=== PATIENT | female | born 1940 | race Caucasian/White ===

== ENCOUNTER → 2018-06-30 | Outpatient (CLI) | payer OTHER | LOC: M.RAD 06-17 15:42 | DX: Z12.31 Encounter for screening mammogram for malignant neoplasm of breast (principal); Z13.820 Encounter for screening for osteoporosis; E28.39 Other primary ovarian failure; Z78.0 Asymptomatic menopausal state ==

== ENCOUNTER 2019-09-04 16:17 | Emergency (ER) | payer OTHER ==
[~2019-09-04] VITALS: Ht 154.9 cm; Wt 85.7 kg
[2019-09-04] MEDS ORDERED: AUGMENTIN 875-1 EACH PO (16:39)
[2019-09-04] MEDS ORDERED: NORCO 5-325 TA1 EAC1 PO (16:39)
[2019-09-04] MEDS ORDERED: CENTANY30 GM TOP (16:40)
[2019-09-04 18:45] VITALS: BP 150/73
== END 2019-09-04 18:45 | disposition home or self-care (01) ==
LOC: M.ERS 16:17
DX: S61.213A Laceration without foreign body of left middle finger without damage to nail, initial encounter (principal); S61.412A Laceration without foreign body of left hand, initial encounter; Z90.49 Acquired absence of other specified parts of digestive tract; W54.0XXA Bitten by dog, initial encounter; Y93.89 Activity, other specified; Y92.89 Other specified places as the place of occurrence of the external cause; Y99.8 Other external cause status

== ENCOUNTER → 2019-09-25 | Outpatient (CLI) | payer OTHER ==
[~2019-09-25] MED LIST: AUGMENTIN 875-1 EACH PO; CENTANY30 GM TOP; NORCO 5-325 TA1 EAC1 PO
== END ==
LOC: M.RAD 11:38
PROVIDERS: ATTEND Nurse Practitioner Family
DX: Z12.31 Encounter for screening mammogram for malignant neoplasm of breast (principal)

== ENCOUNTER 2021-03-30 11:11 | Inpatient (IN) | payer OTHER ==
[~2021-03-30] VITALS: Ht 154.9 cm; Wt 82.6 kg
[2021-03-30 11:21] VITALS: BP 154/76
[2021-03-30 11:49] LABS: ABSOLUTE LYMPHOCYTES 0.7 thou/uL (0.8-5.3); ABSOLUTE MONOCYTES 0.4 thou/uL (0.0-1.2); ABSOLUTE NEUTROPHILS 7.1 thou/uL (1.6-8.1); BASOPHILS 0.2 %; EOSINOPHILS 0.4 %; HEMATOCRIT 37.3 % (37.0-47.0); HEMOGLOBIN 12.9 gm/dL (12.0-15.0); LYMPHOCYTES 8.8 %; MCH 32.7 pg (26.0-34.0); MCHC 34.6 g/dL (28.0-37.0); MCV 94.4 fL (80.0-100.0); MONOCYTES 4.8 %; MPV 7.2 fl. (7.2-11.1); NUCLEATED RBCS 0 /100WBC; PLATELET COUNT* 273 thou/uL (150-400); POLYS 85.8 %; RBC 3.95 mil/uL (4.20-5.00); RDW-CV 13.1 % (10.5-14.5); WBC 8.2 thou/uL (4.0-11.0)
[2021-03-30 11:50] LABS: INFLUENZA A ANTIGEN Negative (Negative); INFLUENZA B ANTIGEN Negative (Negative)
[2021-03-30 11:58] LABS: CALCIUM 8.1 mg/dL (8.5-10.1); CREATININE 0.8 mg/dL (0.6-1.3); POTASSIUM 3.7 mmol/L (3.5-5.1)
[2021-03-30 12:08] LABS: ALBUMIN 2.4 g/dL (3.4-5.0); TOTAL BILIRUBIN 0.3 mg/dL (<0.1-1.0); TOTAL PROTEIN 6.3 g/dL (6.4-8.2)
[2021-03-30 13:35] LABS: URINE BILIRUBIN NEGATIVE (Negative); URINE BLOOD TRACE (Negative); URINE CLARITY CLEAR; URINE COLOR YELLOW; URINE GLUCOSE-RANDOM NEGATIVE (Negative); URINE KETONES NEGATIVE (Negative); URINE LEUKOCYTES-REFLEX NEGATIVE (Negative); URINE NITRITE-REFLEX NEGATIVE (Negative); URINE PROTEIN TRACE (Negative); URINE SPECIFIC GRAVITY 1.015 (1.005-1.030); URINE UROBILINOGEN 0.2 E.U./dl (0.2-1.0)
[2021-03-30 16:56] VITALS: BP 173/82
[2021-03-30 21:18] VITALS: BP 188/72
[2021-03-31] VITALS (7 sets, daily range): BP systolic 115–188; BP diastolic 65–86
[2021-03-31 05:18] LABS: ABSOLUTE LYMPHOCYTES 0.6 thou/uL (0.8-5.3); ABSOLUTE MONOCYTES 0.3 thou/uL (0.0-1.2); ABSOLUTE NEUTROPHILS 5.3 thou/uL (1.6-8.1); BASOPHILS 0.2 %; HEMATOCRIT 36.1 % (37.0-47.0); HEMOGLOBIN 12.2 gm/dL (12.0-15.0); LYMPHOCYTES 9.5 %; MCH 32.5 pg (26.0-34.0); MCHC 33.8 g/dL (28.0-37.0); MCV 96.3 fL (80.0-100.0); MONOCYTES 5.3 %; MPV 7.2 fl. (7.2-11.1); NUCLEATED RBCS 0 /100WBC; PLATELET COUNT* 266 thou/uL (150-400); RBC 3.75 mil/uL (4.20-5.00); RDW-CV 13.4 % (10.5-14.5); WBC 6.3 thou/uL (4.0-11.0)
[2021-03-31 05:22] LABS: CALCIUM 8.1 mg/dL (8.5-10.1); CREATININE 0.6 mg/dL (0.6-1.3); POTASSIUM 4.1 mmol/L (3.5-5.1)
--- NOTE | 2021-03-31 15:27 | EKG ---
[place] [address] ELECTROCARDIOGRAM REPORT Name: SERINA GARCIA Room: [address] IN .R.#: [id number] Admission: 03/30/21 Attend Phys: Rayray Morton, Discharge: Date of : 40 Date of Service: 03/30/21 1118 Report #: [id number] THIS REPORT FOR: //name// [facility] ED Test Date: 2021-03-30 Test Time: 11:18:29 Pat Name: SERINA GARCIA Department: Room: [facility] Gender: F Fire Safety Inspector: : 1940 Requested By: Kiana Castro Order Number: [id number] MD: Leroy Sanchez Measurements Intervals [place] Rate: 104 P: 85 VA: 178 QRS: -31 QRSD: 131 T: 113 QT: 356 QTc: 469 Interpretive Statements Sinus tachycardia Left bundle branch block No previous ECG available for comparison Electronically Signed On 03-31-2021 15:27:21 QUILTER FIXER by Leroy Sanchez [email or web address] <ELECTRONICALLY SIGNED> By: Leroy Sanchez MD, [facility] 03/31/21 1527 1118 1118 Leroy Sanchez MD, [facility] /EPI
[2021-04-01] VITALS: BP 158/71
[2021-04-01 04:11] VITALS: BP 156/67
[2021-04-01 11:30] VITALS: BP 85/56
--- NOTE | 2021-04-01 14:24 | 2DMMODE ---
[place] [address] 2 D/M-MODE ECHOCARDIOGRAM Name: SERINA GARCIA Room: [address] IN [facility]#: [id number] Admission: 03/30/21 Attend Phys: Rayray Morton, Discharge: Date of : 40 Date of Service: 04/01/21 1424 Report #: [id number] THIS REPORT FOR: cc: Arthur Catherine MD, Bruce D. MD Liston, Michael J. MD [facility] ~ APPROVED REPORT Study performed: 04/01/2021 10:29:58 EXAM: Comprehensive 2D, Doppler, and color-flow Echocardiogram Patient Location: In-Patient Room #: [facility] Status: routine BSA: 1.81 HR: 114 bpm Rhythm: NSR Other Information Study Quality: Good Indications Pulmonary Embolism 2D Dimensions IVSd: 12.96 (7-11mm) LVOT Diam: 19.62 (18-24mm) LVDd: 42.48 mm PWd: 10.63 (7-11mm) Ascending Ao: 31.58 (22-36mm) LVDs: 21.74 (25-40mm) Aortic Root: 27.85 mm Volumes Left Atrial Volume (Systole) LA ESV Index: 32.40 mL/m2 Aortic Valve AoV Peak Jason.: 1.97 m/s AO Peak Gr.: 15.49 mmHg LVOT Max P.80 mmHg AO Mean Gr.: 8.70 mmHg LVOT Mean P.13 mmHg LVOT Max V: 1.40 m/s AO V2 VTI: 33.10 cm LVOT Mean V: 0.95 m/s ZA (VTI): 2.42 cm2 LVOT V1 VTI: 26.47 [place] [address] 2 D/M-MODE ECHOCARDIOGRAM Name: SERINA GARCIA Room: [address]#: [id number] Admission: 03/30/21 Attend Phys: Rayray Morton, Discharge: Date of : 40 Date of Service: 04/01/21 1424 Report #: [id number] Mitral Valve MV Mean Gr.: 6.46 mmHg E/A Ratio: 0.67 MV Decel. Time: 139.72 ms MV E Max Jason.: 1.13 m/s MV PHT: 40.52 ms MVA (PHT): 5.43 cm2 TDI E/Lateral E': 11.30 E/Medial E': 12.56 Medial E' Jason.: 0.09 m/s Lateral E' Jason.: 0.10 m/s Pulmonary Valve PV Peak Jason.: 1.58 m/s PV Peak Gr.: 9.94 mmHg Tricuspid Valve RAP Estimate: 5.00 mmHg TR Peak Gr.: 31.70 mmHg RVSP: 36.00 mmHg PA Pressure: 36.00 mmHg Left Ventricle The left ventricle is normal size. There is normal LV segmental wall motion. There is normal left ventricular wall thickness. Left ventricular systolic function is hyperdynamic. LVEF is >70%. Grade I - abnormal relaxation pattern. Right Ventricle The right ventricle is normal size. The right ventricular systolic function is normal. Atria The left atrium size is normal. The right atrium size is normal. Aortic Valve The aortic valve is normal in structure. No aortic regurgitation is present. There is no aortic valvular stenosis. Mitral Valve There is mitral annular calcification. Mild mitral regurgitation. No evidence of mitral valve stenosis. Tricuspid Valve The tricuspid valve is normal in structure. Trace tricuspid regurgitation. The RVSP is 35-[place] [address] 2 D/M-MODE ECHOCARDIOGRAM Name: SERINA GARCIA Room: [address]#: [id number] Admission: 03/30/21 Attend Phys: Rayray Morton, Discharge: Date of : 40 Date of Service: 04/01/21 1424 Report #: [id number] Pulmonic Valve The pulmonary valve is normal in structure. Mild pulmonic regurgitation. Great Vessels The aortic root is normal in size. IVC is normal in size and collapses >50% with inspiration. Pericardium There is no pericardial effusion. <Conclusion> The left ventricle is normal size. There is normal left ventricular wall thickness. Left ventricular systolic function is hyperdynamic. LVEF is >70%. Grade I - abnormal relaxation pattern. Mild mitral regurgitation. Trace tricuspid regurgitation. The RVSP is 35-40 mmHg. Mild pulmonic regurgitation. IVC is normal in size and collapses >50% with inspiration. <ELECTRONICALLY SIGNED> By: Ronny Cruz MD, FACC 04/01/21 1424 1424 1424 Ronny Cruz MD, FACC /INF
[2021-04-01 20:29] VITALS: BP 155/70
[2021-04-02] VITALS (8 sets, daily range): BP systolic 91–170; BP diastolic 67–82
[2021-04-02 05:21] LABS: ABSOLUTE MONOCYTES 0.5 thou/uL (0.0-1.2); HEMATOCRIT 35.2 % (37.0-47.0); LYMPHOCYTES 11.7 %; MCH 32.9 pg (26.0-34.0); MCHC 34.1 g/dL (28.0-37.0); MCV 96.4 fL (80.0-100.0); MONOCYTES 5.7 %; MPV 7.6 fl. (7.2-11.1); NUCLEATED RBCS 0 /100WBC; PLATELET COUNT* 335 thou/uL (150-400); POLYS 82.6 %; RBC 3.65 mil/uL (4.20-5.00); RDW-CV 13.3 % (10.5-14.5); WBC 8.4 thou/uL (4.0-11.0)
[2021-04-02 05:42] LABS: ALBUMIN 2.4 g/dL (3.4-5.0); CALCIUM 8.2 mg/dL (8.5-10.1); CREATININE 0.7 mg/dL (0.6-1.3); POTASSIUM 4.1 mmol/L (3.5-5.1); TOTAL BILIRUBIN 0.3 mg/dL (<0.1-1.0)
[2021-04-02] MEDS ORDERED: DECARA625 MCG PO (14:26)
[2021-04-02] MEDS ORDERED: COMBIVENT RESPIM4 GM INH (14:26)
[2021-04-02] MEDS ORDERED: CEFDINIR300 MG PO (14:26)
[2021-04-02] MEDS ORDERED: VITAMIN C1000 MG PO (14:26)
[2021-04-02] MEDS ORDERED: NAC600 MG PO (14:26)
[2021-04-02] MEDS ORDERED: DEXAMETHASONE1 MG PO (14:26)
[2021-04-02] MEDS ORDERED: ELIQUIS5 MG PO (14:33)
--- NOTE | 2021-04-02 22:17 | CON ---
[address] [address] CONSULTATION Name: SERINA GARCIA Room: [address] IN M.R.#: [id number] Admission: 03/30/21 Attend Phys: Rayray Morton MD Discharge: 04/02/21 Date of : 40 Report #: [id number] THIS REPORT FOR: cc: Arthur Catherine MD, Bruce D. MD Pervez, Adeel MD ~ DATE OF CONSULTATION: 03/31/2021 REQUESTING PHYSICIAN: Rayray Morton MD INDICATION FOR CONSULTATION: COVID-19 and acute pulmonary emboli. HISTORY OF PRESENT ILLNESS: This is an 81-year-old female. Past medical history is as mentioned below. This does not include a history of a cardiac or respiratory disease. The patient has not been vaccinated for COVID-19. The patient is now admitted with shortness of breath as well as cough. She has also had blocked nose as well as clear nasal discharge. The patient did test positive for COVID-19. She also does have a small pulmonary embolus on her CTA chest. O2 saturation on room air was 89%. We, however, have come up to the high 90s with 3 liters of oxygen in place. There is no swelling of lower extremities. There is no calf pain. REVIEW OF SYSTEMS: Twelve points is negative except as mentioned above. PAST MEDICAL HISTORY: Had a stress test 10 years ago. I do not have the report available. Ovarian cyst, foot surgery, tonsillectomy, broken arm. SOCIAL HISTORY: Lifetime nonsmoker. No known history of heavy alcohol use or illegal drug use. CURRENT MEDICATIONS: The list in [facility] reviewed. HOME MEDICATIONS: List also in [facility] reviewed. ALLERGIES: No known drug allergies. FAMILY HISTORY: There is no pertinent family history. PHYSICAL EXAMINATION: GENERAL: She is alert, awake and oriented, does not appear to be in any distress. VITAL SIGNS: Has a pulse of 94 and a blood pressure of 176/86. She is saturating 98% on 3 liters of nasal cannula. Mild elevation in respiratory rate of 22. She is afebrile with a temperature of 36.6. HEAD: [place]ocephalic [place] [address] CONSULTATION Name: SERINA GARCIA Room: [address]#: [id number] Admission: 03/30/21 Attend Phys: Rayray Morton MD Discharge: 04/02/21 Date of : 40 Report #: [id number] NECK: Does not show raised JVP. CHEST: Breath sounds bilaterally equal. No added sounds. HEART: Regular. There is no murmur. ABDOMEN: Soft and nontender. EXTREMITIES: Lower extremities show no edema and no calf tenderness. LABORATORY DATA: The patient's lab work as well as CT chest are in [facility] and these are reviewed. ASSESSMENT/PLAN: 1. Acute hypoxemic respiratory failure secondary to COVID-19 and acute pulmonary emboli. Continue to titrate oxygen. Avoid supine sleep. 2. COVID-19. I agree with remdesivir as well as Decadron as currently ordered. Watch blood glucoses. 3. Acute pulmonary embolism. I agree with anticoagulation. If she remains stable, then this could be switched over to oral Eliquis soon. I would recommend doing an echo. Also recommend checking venous Dopplers. 4. Pulmonary infiltrates. Agree with covering for secondary bacterial infections with broad-spectrum antibiotics. 5. Fluid and electrolytes. She appears to be well hydrated. I will discontinue IV fluids to avoid development of fluid overload. 6. Elevated blood pressure. There are some blood pressures, which are elevated up to 188 systolic and others are down to 131 systolic. There is no previous diagnosis of hypertension. I would defer followup to primary service. 7. Hyperglycemia. Insulin sliding scale. 8. Clostridium difficile prophylaxis. Lactinex. 9. Gastrointestinal prophylaxis. Protonix. I will see her again on Wednesday if she is still here. Please call if I need to see her tomorrow. <ELECTRONICALLY SIGNED> By: Ankit Ríos MD 04/02/21 2217 1453 1909Anidhi Ríos MD /nt
== END 2021-04-02 18:50 | disposition home or self-care (01) | DRG 177 ==
LOC: M.ERS 11:11 → M.TBA-ER 13:20 → M.ORTHSURG 03-31 11:40
PROVIDERS: Physician Assistant; ADMIT Internal Medicine; ATTEND Internal Medicine
PROC: XW033E5 Introduction of Remdesivir Anti-infective into Peripheral Vein, Percutaneous Approach, New Technology Group 5 (ICD-10-PCS; principal; 2021-03-30)
DX: U07.1 COVID-19 (principal); I26.99 Other pulmonary embolism without acute cor pulmonale; J12.82 Pneumonia due to coronavirus disease 2019; J80 Acute respiratory distress syndrome; E87.1 Hypo-osmolality and hyponatremia; R73.9 Hyperglycemia, unspecified; I16.0 Hypertensive urgency